=== PATIENT | female | born 1940 | race Caucasian/White ===

== ENCOUNTER 2022-04-30 10:09 | Outpatient (CLI) | payer MEDICARE, BC, SELFPAY | END 2022-04-30 10:10 | disposition home or self-care (01) | PROVIDERS: PCP Family Medicine; Visit Provider Family Medicine | DX: M54.16 Radiculopathy, lumbar region (principal); M51.36 Other intervertebral disc degeneration, lumbar region | CPT/HCPCS: 62323; J0702; Q9966 ==

== ENCOUNTER 2022-06-20 12:25 | Emergency (ER) | payer MEDICARE, BC, SELFPAY ==
[2022-06-20] VITALS (9 sets, daily range): BP systolic 131–173; BP diastolic 72–101; PULSE 83–100; TEMP 36.2; O2SAT 94–100; BMI 23.6
--- NOTE | 2022-06-20 13:09 | ED.BACK ---
HPI - Back Pain/Injury General Time Seen by Provider: 13:09 Date Seen: 06/20/22 Chief Complaint: Back Injury/Pain Stated Complaint: Right side pain Time Seen by Provider: 06/20/22 13:04 Source: patient and RN notes reviewed Mode of arrival: ambulatory Limitations: no limitations History of Present Illness HPI Narrative: Patient is a 81-year-old female with known spinal stenosis coming in with more upper right-sided posterior back pain now. Insidiously over the week she has had right-sided posterior chest wall pain. It radiates and wraps around to the front sometimes. It hurts with position changes, she feels like she can not get comfortable, hurts in the posterior chest wall area with deep breathing.. About 1-2 months ago she did have an injection for her lumbar spinal stenosis. She has been using some ice on her low back for that. Her leg will sometimes go out due to this but that is not new. This right posterior chest wall pain has gotten progressive over the week. She did try some heat and ice on it, that did not help. She is on Celebrex during the day and takes gabapentin at night for her back. Tylenol has not touched anything. Her current pain medicines are not helping. She does see Dr. Nguyen at [facility]. No fevers or chills, no cough or cold symptoms. She does not feel like there is any internal pain such as pain coming from her heart. We did review that we would just look at an EKG and troponin and she does feel comfortable with that. She feels like there is a swelling in her back. She denies any acute trauma. She does know that she has osteoporosis besides arthritis of her spine as well as the spinal stenosis. Related Data Home Medications Medication Instructions Recorded Confirmed celecoxib 200 mg capsule mg 06/20/22 gabapentin 300 mg capsule mg 06/20/22 lisinopril 40 mg tablet mg 06/20/22 meclizine 25 mg tablet mg 06/20/22 Previous Rx's Medication Instructions Recorded tizanidine 2 mg tablet 2 mg PO Q8H PRN muscle spasticity 06/20/22 #20 tabs Allergies Allergy/AdvReac Type Severity Reaction Status Date / Time No Known Drug Allergies Allergy Verified 06/20/22 12:34 Review of Systems Status of ROS: Reports: 10 or more systems reviewed and unremarkable except as noted in History and below PFSH PFSH Social History Smoking Status: Never smoker How often do you have a drink containing alcohol: never How often do you have six or more drinks on one occasion: Never AUDIT-C Alcohol total score: 0 Non-prescribed substance use: denies use Exam Const: Vital Signs, click to edit/add: Vital Signs - 24 hr 06/20/22 12:30 06/20/22 13:26 06/20/22 13:00 Temperature 97.2 F L Pulse Rate Pulse Rate [Left P ulse Oximeter] 100 89 Blood Pressure Blood Pressure [Ri ght Upper Arm] 173/101 H 138/73 Pulse Oximetry 98 98 96 Oxygen Delivery Me thod Room Air Room Air 06/20/22 13:30 06/20/22 14:30 06/20/22 15:00 Temperature Pulse Rate 91 Pulse Rate [Left P ulse Oximeter] 90 83 Blood Pressure Blood Pressure [Ri ght Upper Arm] 138/72 155/79 H Pulse Oximetry 98 100 100 Oxygen Delivery Me thod Room Air Room Air 06/20/22 15:02 06/20/22 15:03 06/20/22 16:17 Temperature Pulse Rate 89 97 Pulse Rate [Left P ulse Oximeter] Blood Pressure 131/79 Blood Pressure [Ri ght Upper Arm] Pulse Oximetry 98 100 94 Oxygen Delivery Me thod Documenting provider has reviewed patient's vital signs: yes Common normals: no apparent distress, average body habitus, oriented x3, no limitations, healthy appearing, alert and well nourished General appearance: cooperative, comfortable, well kempt and well developed Other: Does have discomfort with attempts at movement. When she is at rest, does appear comfortable however. HENMT: Common normals: normocephalic, head/scalp atraumatic and hearing grossly normal bilaterally Head and scalp: normocephalic and atraumatic Eye: Common normals: PERRL, EOMs intact bilaterally, conjunctivae normal and no scleral icterus Conjunctiva: conjunctiva(e) normal Pupil: PERRL Neck & C-Spine: Common normals: full ROM, no lymphadenopathy, supple, no meningeal signs, no JVD and thyroid normal Thyroid: thyroid normal Chest: Other: On her right lower chest wall juxtaposed to the spine in the paraspinous area, does seem to be some prominence of the soft tissue but no overlying skin changes. She has tenderness when I palpate along the lower right chest wall with the maximum intensity of pain closer to her midline back. There is no ecchymosis erythema or rash however. There is no crepitus or step-off. Resp: Common normals: normal respiratory effort, no retractions, no use of accessory muscles and clear to auscultation bilaterally Auscultation: clear to auscultation bilaterally Cardio: Common normals: no JVD, regular rate, regular rhythm, S1 normal heart sound, S2 normal heart sound, no gallops and no clicks Rate: regular rate Rhythm: regular rhythm Heart sounds: S1 normal and S2 normal GI: Common normals: Normal to inspection, nondistended, normoactive bowel sounds present, soft to palpation, non-tender, no hepatosplenomegaly and no masses Palpation: soft and no hepatosplenomegaly Back & Pelvis: Common normals: thoracic and lumbar spine normal to inspection, no thoracic nor lumbar tenderness and straight leg raise negative bilaterally Extremity: Other: No lower extremity edema, no calf tenderness. Neuro: Common normals: oriented x3 Sensorium/orientation: alert Meningeal signs: no meningeal signs Psych: Appearance: well kempt Course Course Hospital Course: Reviewed imaging options. They would like to proceed with CT imaging and I have ordered CT of her chest noncontrast as well as reconstruction of her thoracic spine. I do think osteoporotic fractures are potential etiology here. This seems to be isolated to her chest wall. Will get appropriate labs. As reviewed with her, will get an EKG and troponin just to ensure there is no concerning change and AA atypical presentation of coronary artery disease. She is in agreement with this. We did review that we would discussed pain management but will try to find the etiology 1st. She is comfortable enough at this time and does not need emergent intervention as far as pain. Reevaluation(s) Reevaluation #1: Brought copies of her CT reports in, no evidence of any acute fracture. There is no mass in the chest wall. Re-evaluation the chest wall reveals a little prominent area over the right medial lower rib cage, very tender, feels like this is probable palpable muscle spasm. She is just exquisitely tender in this area and there is nothing showing up on CT. Her labs are notably normal. We can try adding in a muscle relaxant for her. I would have her continue using ice. Time: 16:23 Vital Signs Vital signs: Initial Vital Signs Temperature 97.2 F L 06/20/22 12:30 Temperature Source Temporal Artery Scan 06/20/22 12:30 Pulse Rate 100 06/20/22 12:30 Blood Pressure 173/101 H 06/20/22 12:30 Blood Pressure Mean 125 06/20/22 12:30 Blood Pressure Position Sitting 06/20/22 12:30 Pulse Oximetry 98 06/20/22 12:30 Oxygen Delivery Method 06/20/22 12:30 Vital Signs Temperature 97.2 F L 06/20/22 12:30 Pulse Rate 100 06/20/22 12:30 Blood Pressure 173/101 H 06/20/22 12:30 Pulse Oximetry 98 06/20/22 12:30 Oxygen Delivery Method 06/20/22 12:30 Temperature 97.2 F L 06/20/22 12:30 Pulse Rate 97 06/20/22 16:17 Blood Pressure 131/79 06/20/22 15:02 Pulse Oximetry 94 06/20/22 16:17 Oxygen Delivery Method 06/20/22 14:30 MDM - Back Pain/Injury Lab Data Attestation: I reviewed the patient's lab results. Labs: Lab Results 06/20/22 06/20/22 06/20/22 Range/Units 13:27 13:58 13:58 WBC 8.07 (4.50-11.00) K/uL RBC 4.30 (4.00-5.20) m/uL Hgb 12.7 (12.0-16.0) gm/dL Hct 39.3 (33.0-51.0) % MCV 91 (80-100) fL MCH 30 (26-34) pg MCHC 32 (32-36) gm/dL RDW Coeff of Luisa 13.5 (11.5-15.5) % Plt Count 295 (140-440) K/uL Neut % (Auto) 62.8 (42.0-72.0) % Lymph % (Auto) 27.1 (20-44) % [place] % (Auto) 7.9 (0.0-11.0) % Eos % (Auto) 1.7 (0.0-7.0) % Baso % (Auto) 0.4 (0.0-3.0) % Neut # (Auto) 5.06 (1.7-7.0) K/uL Lymph # (Auto) 2.19 (0.90-2.90) K/uL [place] # (Auto) 0.60 (0.00-0.90) K/UL Eos # (Auto) 0.14 (0.00-0.50) K/uL Baso # (Auto) 0.03 (0.00-0.30) K/uL Sodium 141 (135-149) mmol/L Potassium 4.3 (3.6-5.1) mmol/L Chloride 110 (96-114) mmol/L Carbon Dioxide 23 (20-32) mmol/L BUN 25 (7-30) mg/dL Creatinine 1.0 (0.5-1.5) mg/dL Estimated Creat Clear 32.77 Estimated GFR 57 ml/min Glucose 88 (60-115) mg/dL Lactate (0.5-1.9) mmol/L Calcium 9.1 (8.4-10.6) mg/dL Total Bilirubin 0.5 (0.1-1.5) mg/dL AST 29 (12-35) U/L ALT 19 (4-35) U/L Alkaline Phosphatase 62 (40-150) U/L Total Protein 7.1 (6.0-8.3) g/dL Albumin 4.5 (3.3-5.0) g/dL POC Troponin I 0.01 (0.01-0.04) ng/ml 06/20/22 Range/Units 13:58 WBC (4.50-11.00) K/uL RBC (4.00-5.20) m/uL Hgb (12.0-16.0) gm/dL Hct (33.0-51.0) % MCV (80-100) fL MCH (26-34) pg MCHC (32-36) gm/dL RDW Coeff of Luisa (11.5-15.5) % Plt Count (140-440) K/uL Neut % (Auto) (42.0-72.0) % Lymph % (Auto) (20-44) % [place] % (Auto) (0.0-11.0) % Eos % (Auto) (0.0-7.0) % Baso % (Auto) (0.0-3.0) % Neut # (Auto) (1.7-7.0) K/uL Lymph # (Auto) (0.90-2.90) K/uL [place] # (Auto) (0.00-0.90) K/UL Eos # (Auto) (0.00-0.50) K/uL Baso # (Auto) (0.00-0.30) K/uL Sodium (135-149) mmol/L Potassium (3.6-5.1) mmol/L Chloride (96-114) mmol/L Carbon Dioxide (20-32) mmol/L BUN (7-30) mg/dL Creatinine (0.5-1.5) mg/dL Estimated Creat Clear Estimated GFR ml/min Glucose (60-115) mg/dL Lactate 1.0 (0.5-1.9) mmol/L Calcium (8.4-10.6) mg/dL Total Bilirubin (0.1-1.5) mg/dL AST (12-35) U/L ALT (4-35) U/L Alkaline Phosphatase (40-150) U/L Total Protein (6.0-8.3) g/dL Albumin (3.3-5.0) g/dL POC Troponin I (0.01-0.04) ng/ml Imaging Data CT- Other: Attestation: I have reviewed the pertinent imaging results. Radiologist's impression: Patient: YOSHI WEINSTEIN Facility:?[facility] Patient ID:?[id number] Site Patient ID:?[id number]. Site :?[id number] Study:?CT Spine Thoracic WO-06/20/2022 2:32:42 PM Ordering Physician:?Stacey Kelly Final Report: INDICATION: Back pain, radiates into chest.. TECHNIQUE: CT thoracic spine without contrast. COMPARISON: None. FINDINGS: Vertebrae: Alignment is normal. There are no fractures or suspicious bony lesions. Diffuse demineralization of the visualized bones. Discs and facet joints: Multilevel degenerative changes do mild degree throughout the thoracic spine. At the L1 vertebral body there is compression deformity and severe degenerative changes along the endplates. Extraspinal findings: Prevertebral soft tissues, visualized airway, and visualized lungs are unremarkable. IMPRESSION: No acute fractures or subluxation. Chronic appearing compression deformity of the L1 vertebral body with surrounding severe degenerative endplate changes. Please note that all CT scans at this facility use dose modulation, iterative reconstruction, and/or weight-based dosing when appropriate to reduce radiation dose to as low as reasonably achievable. Dictated by Nellie Rosario MD @ 06/20/2022 3:27:47 PM (Electronic Signature) CT scan - chest: Attestation: I have reviewed the pertinent imaging results. Radiologist's impression: Patient: YOSHI WEINSTEIN Facility:?[facility] Patient ID:?[id number] Site Patient ID:?[id number]. Site :?[id number] Study:?CT Chest WO-06/20/2022 2:32:12 PM Ordering Physician:Aneta Kelly Final Report: INDICATION: Right posterior chest wall pain.. TECHNIQUE: CT chest without contrast. COMPARISON: None. FINDINGS: Lungs and pleura: No suspicious nodules or infiltrates. No pleural effusions, pleural thickening, or pneumothorax. Probable small right-sided Bochdalek`s hernia containing fat. Minimal bibasilar atelectasis. Heart and vasculature: Heart size is borderline enlarged. Thoracic aorta and pulmonary artery are normal in caliber. Trace pericardial effusion, nonspecific. Lymph nodes/mediastinum: No mediastinal, hilar, or axillary adenopathy. Chest wall: No masses. Upper abdomen: No significant findings. Bones: Diffuse demineralization of visualized bones. Compression deformity in severe degenerative changes at the superior and inferior endplate of the L1 vertebral body. No acute fractures identified. IMPRESSION: No acute cardiopulmonary process identified. Probably chronic compression deformity of the L1 vertebral body with surrounding endplate degenerative changes. Please note that all CT scans at this facility use dose modulation, iterative reconstruction, and/or weight-based dosing when appropriate to reduce radiation dose to as low as reasonably achievable. Dictated by Nellie Rosario MD @ 06/20/2022 3:24:04 PM (Electronic Signature) ECG Data Attestation: I personally reviewed and interpreted this ECG as follows: (Sinus rhythm, 84 beats per minute. Flipped T-waves lateral precordial leads V3 through V6 without ST segment changes.) Prior ECG tracings: not available for review (No old EKG in our system) Critical Care Time Critical Care Time Critical Care Time: No Discharge Plan Discharge Clinical Impression: Spasm of thoracic back muscle Condition: Stable Instructions: Muscle Spasm (ED), Back Pain (ED) Additional Instructions: I would try using ice to this area of your back. If you cannot tolerate it then can try heat instead. We will try the muscle relaxant, use as prescribed. If you absolutely cannot sleep, can try increasing the gabapentin to 2 tablets at bedtime for 600 mg. If this is too sedating for you or you have too many side effects from it, go back down to the 300 mg at bedtime. Follow-up with your primary care provider within the next week for ongoing symptoms. If you develop fever, difficulty breathing, have no pain relief, seek re-evaluation. Activity Level: Activity as Tolerated Prescriptions: New tizanidine 2 mg tablet 2 mg PO Q8H PRN (Reason: muscle spasticity) Qty: 20 0RF No Action celecoxib 200 mg capsule meclizine 25 mg tablet gabapentin 300 mg capsule lisinopril 40 mg tablet Follow Up/Referrals: Ginny Tobias DO [Primary Care Provider] - Stand Alone Forms: [employer] [facility] Info Instructions
--- NOTE | 2022-06-20 13:26 | CRLHL7_ITS ---
For Patients: As a result of the Century Cures Act, medical imaging exams and procedure reports are released immediately into your electronic medical record. You may view this report before your referring provider. If you have questions, please contact your health care provider. INDICATION: Right posterior chest wall pain.. TECHNIQUE: CT chest without contrast. COMPARISON: None. FINDINGS: Lungs and pleura: No suspicious nodules or infiltrates. No pleural effusions, pleural thickening, or pneumothorax. Probable small right-sided Bochdalek`s hernia containing fat. Minimal bibasilar atelectasis. Heart and vasculature: Heart size is borderline enlarged. Thoracic aorta and pulmonary artery are normal in caliber. Trace pericardial effusion, nonspecific. Lymph nodes/mediastinum: No mediastinal, hilar, or axillary adenopathy. Chest wall: No masses. Upper abdomen: No significant findings. Bones: Diffuse demineralization of visualized bones. Compression deformity in severe degenerative changes at the superior and inferior endplate of the L1 vertebral body. No acute fractures identified. IMPRESSION: No acute cardiopulmonary process identified. Probably chronic compression deformity of the L1 vertebral body with surrounding endplate degenerative changes. Please note that all CT scans at this facility use dose modulation, iterative reconstruction, and/or weight-based dosing when appropriate to reduce radiation dose to as low as reasonably achievable. Dictated by Nellie Rosario MD @ 06/20/2022 3:24:04 PM (Electronically Signed)
--- NOTE | 2022-06-20 13:27 | CRLHL7_ITS ---
For Patients: As a result of the Century Cures Act, medical imaging exams and procedure reports are released immediately into your electronic medical record. You may view this report before your referring provider. If you have questions, please contact your health care provider. INDICATION: Back pain, radiates into chest.. TECHNIQUE: CT thoracic spine without contrast. COMPARISON: None. FINDINGS: Vertebrae: Alignment is normal. There are no fractures or suspicious bony lesions. Diffuse demineralization of the visualized bones. Discs and facet joints: Multilevel degenerative changes do mild degree throughout the thoracic spine. At the L1 vertebral body there is compression deformity and severe degenerative changes along the endplates. Extraspinal findings: Prevertebral soft tissues, visualized airway, and visualized lungs are unremarkable. IMPRESSION: No acute fractures or subluxation. Chronic appearing compression deformity of the L1 vertebral body with surrounding severe degenerative endplate changes. Please note that all CT scans at this facility use dose modulation, iterative reconstruction, and/or weight-based dosing when appropriate to reduce radiation dose to as low as reasonably achievable. Dictated by Nellie Rosario MD @ 06/20/2022 3:27:47 PM (Electronically Signed)
[2022-06-20 14:05] LABS: Basophils Absolute Auto 0.03 K/uL (0.00-0.30); Basophils Percent Auto 0.4 % (0.0-3.0); Eosinophils Absolute Auto 0.14 K/uL (0.00-0.50); Eosinophils Percent Auto 1.7 % (0.0-7.0); Hematocrit 39.3 % (33.0-51.0); Hemoglobin* 12.7 gm/dL (12.0-16.0); Immature Granulocytes Abs Auto 0.01 K/uL (0.00-0.30); Immature Granulocytes Pct Auto 0.1 %; Lymphocytes Absolute Auto 2.19 K/uL (0.90-2.90); Lymphocytes Percent Auto 27.1 % (20-44); Mean Corpuscular HGB Conc 32 gm/dL (32-36); Mean Corpuscular Hemoglobin 30 pg (26-34); Mean Corpuscular Volume 91 fL (80-100); Monocytes Percent Auto 7.9 % (0.0-11.0); Neutrophils Absolute Auto 5.06 K/uL (1.7-7.0); Neutrophils Percent Auto 62.8 % (42.0-72.0); Platelet Count* 295 K/uL (140-440); RDW Coefficient of Variation % 13.5 % (11.5-15.5); White Blood Count* 8.07 K/uL (4.50-11.00)
[2022-06-20 14:09] LABS: Slide Review Reflex No
[2022-06-20 14:20] LABS: Troponin, Point-of-Care* 0.01 ng/ml (0.01-0.04)
[2022-06-20 14:30] LABS: Albumin* 4.5 g/dL (3.3-5.0); Chloride* 110 mmol/L (96-114)
[2022-06-20 14:31] LABS: Potassium* 4.3 mmol/L (3.6-5.1); Sodium* 141 mmol/L (135-149)
[2022-06-20 14:33] LABS: Aspartate Amino Transferase* 29 U/L (12-35); Bilirubin Total* 0.5 mg/dL (0.1-1.5); Carbon Dioxide* 23 mmol/L (20-32); Est. Creatinine Clearance* 32.77; Estimated Glomerular Filt Rate 57 ml/min; Total Protein* 7.1 g/dL (6.0-8.3)
[2022-06-20 14:34] LABS: Alanine Aminotransferase* 19 U/L (4-35); Alkaline Phosphatase* 62 U/L (40-150); Blood Urea Nitrogen* 25 mg/dL (7-30); Calcium* 9.1 mg/dL (8.4-10.6); Glucose* 88 mg/dL (60-115)
== END 2022-06-20 16:42 | disposition home or self-care (01) ==
PROVIDERS: Emergency Provider Family Medicine; PCP Family Medicine
DX: M54.6 Pain in thoracic spine (principal); M62.830 Muscle spasm of back
CPT/HCPCS: 36415; 71250; 72128; 80053; 83605; 84484; 85025; 93005; 94761; 99284; 99285

== ENCOUNTER 2023-01-17 12:47 | Outpatient (RCR) | payer MEDICARE, BC, SELFPAY | END 2023-05-17 23:59 | disposition home or self-care (01) | PROVIDERS: PCP Family Medicine; Visit Provider Family Medicine | DX: H81.13 Benign paroxysmal vertigo, bilateral (principal); Z51.89 Encounter for other specified aftercare | CPT/HCPCS: 97140; 97162 ==

== ENCOUNTER 2023-03-11 08:35 | Outpatient (CLI) | payer MEDICARE, BC, SELFPAY | END 2023-03-11 08:36 | disposition home or self-care (01) | LOC: INJ CL 08:36 | PROVIDERS: PCP Family Medicine; Visit Provider Family Medicine | DX: M51.36 Other intervertebral disc degeneration, lumbar region (principal); M54.16 Radiculopathy, lumbar region | CPT/HCPCS: 62323; J0702; Q9966 ==

== ENCOUNTER 2023-06-11 13:45 | Outpatient (RCR) | payer MEDICARE, BC, SELFPAY | END 2023-07-11 09:08 | disposition home or self-care (01) | PROVIDERS: PCP Family Medicine; Visit Provider Family Medicine | DX: H81.13 Benign paroxysmal vertigo, bilateral (principal); M54.2 Cervicalgia; M25.60 Stiffness of unspecified joint, not elsewhere classified; Z51.89 Encounter for other specified aftercare | CPT/HCPCS: 97110; 97140; 97161; 97535 ==

== ENCOUNTER 2023-07-15 09:08 | Outpatient (CLI) | payer MEDICARE, BC, SELFPAY ==
--- OUTSIDE RECORDS SUMMARY | 2023-07-15 09:11 | XMS_ITS | Clinical Summary ---
Author Name Unknown Organization [facility] Address [place], [place] [address] Care Team Providers Care Toy Consultant Name Role Phone Ginny Tobias DO Primary Care Provider [phone] Meena Sterling MD Unavailable [phone] Allergies Active Allergy Reactions Criticality Noted Date Comments Hydrochlorothiazide Other - Describe In Comment Field 05/19/2013 elevated creatinine-was on lisinopril with this, but no elevation on lisinopril alone. 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 180 Capsule 4 09/16/2022 Active gabapentin (NEURONTIN) 300 mg capsuleIndications:Lum bar radiculopathy,Chronic midline low back pain with right-sided sciatica Take 1 Capsule (300 mg) by mouth at bedtime. 90 Capsule 4 09/16/2022 Active meclizine (ANTIVERT) 25 mg tabletIndications:BPV (benign positional vertigo), unspecified laterality Take 1/2 to 1 tablet by mouth every 8 hours as needed. 10 Tablet 3 09/16/2022 Active Active Problems Problem Noted Date Diagnosed Date BPV (benign positional vertigo), unspecified lat erality 09/14/2021 Essential hypertension 09/14/2021 White coat syndrome with diagnosis of hypertensi on 12/02/2019 Hemangioma of other sites 06/16/2017 Osteopenia 03/11/2012 Resolved Problems Problem Noted Date Diagnosed Date Resolved Date HTN (hypertension) 03/11/2012 2 Encounters Date Type Department Care Team Description 07/15/2023 Travel 06/16/2023 10:00 AM [employer]ODU[employer] TE[employer]ER Ancillary Procedure [facility] [address] [facility] [id number] 06/16/2023 Travel 06/13/2023 Telephone [facility] [address] [facility] [address] Chandler Nguyen MD INJECTION (BACK INJECTION) 05/13/2023 Telephone [facility] [address] [facility] [address] Ginny Tobias, Physical Therapy from Last 3 Months Immunizations Name Administration Dates Next Due COVID-19 vaccine (Hyasynth Bio-Bio NTech 30mcg/0.3mL) 12YO+ AB-SUCROSE PF, MDV 01/23/2022 COVID-19 vaccine (Pfizer-Bio NTech 30mcg/0.3mL) PF, MDV 08/29/2020 Influenza, High-dose Inactivated 05/13/2016,03/31,04/15/2014 Influenza, High-dose Quadriv alent Inactivated 04/12/2021 Influenza, Inactivated AIIV4 (Age 65+ Years) Preserv Free 06/10/2022,04/24/2020 Influenza, Inactivated IIV3 (Age 65+ Years) Preserv Free 03/24/2019,05/04/2018,05/02/2017 Pneumococcal Poly,23-Valent (Pneumovax) 04/09/20 13 Pneumococcal conj 13-Valent (Prevnar 13) 015 Tdap 03/11/2012 Family History Medical History Relation Name Comments Hyperlipidemia Brother Heart Disease Father alheimers and defibulator Cancer-breast Maternal Aunt Cancer-ovarian No Family History Relation Name Status Comments Brother Father Maternal Aunt Social History Tobacco Use Types Packs/Day Years Used Date Smoking Tobacco: Never Smokeless Tobacco: Never Tobacco Cessation:Counseling Given: Yes Alcohol Use Standard Drinks/Week Comments No 0 (1 standard drink = 0.6 oz pur e alcohol) Rare PHQ-2 Answer Date Recorded PHQ-2 TOTAL SCORE 0 09/16/2022 Social Connections Answer Date Recorded Frequency of Communication with Friends and Fami ly Not on file 01/14/2023 Financial Resource Strain Answer Date R ecorded Difficulty of Paying Living Expenses 3 01/10/2022 Difficulty of Paying Living Expenses Not on file 01/10/2022 Food Insecurity Answer Date Recorded Worried About Running Out of Food in the Last Ye ar 1 01/10/2022 Transportation Needs Answer Date Record ed Lack of Transportation (Medical) 1 01/10/2022 Housing Stability Answer Date Recorded Unable to Pay for Housing in the Last Year 1 01/10/2022 Sex and Gender Information Value Date Recorded Sex Assigned at Not on file Gender Identity Not on file Sexual Orientation Not on file Obstetrics History Para Term AB IAB SAB Ectopic Multiple Livin g Live Births 2 2 0 Date Outcome GA Total Labor Labor/2nd/3rd Weight Sex Delivery Anes PTL Olga Lidia A1 A5 Name Cl in Para Para Last Filed Vital Signs Vital Sign Reading Time Taken Comments Blood Pressure 145/78 01/10/2023 1:57 PM CDT Pulse 92 01/10/2023 1:57 PM CDT Temperature 36.5 ??C (97.7 ??F) 03/21/2022 9:12 AM CD T Respiratory Rate - - Oxygen Saturation 98% 01/10/2023 1:57 PM CDT Inhaled Oxygen Concentration - - Weight 55.3 kg (122 lb) 01/10/2023 1:57 PM CDT Height 154.9 cm (5' 1) 01/10/2023 1:57 PM CDT Body Mass Index 23.05 01/10/2023 1:57 PM CDT Plan of Treatment Upcoming Encounters Date Type Department Care Team (Late st Contact Info) Description 07/15/2023 9:40 AM [employer] TE[employer]ER Office Visit [facility] [address] [place] [id number] Chandler Nguyen MD [address] [place] [address] Arrived Health Maintenance Due Date Last Done Comments Zoster (shingles) series for age 50+ (1 of 2) 1992 Tetanus booster 03/11/2022 03/11/2012 COVID-19 vaccine series ( season) 2023 01/23/2022, 05/31/2021, 09/19/2020, Additional history exists Influenza for age 65+ 02/28/2023 06/10/2022 , 04/12/2021, 04/24/2020, Additional history exists Medicare Wellness for age 65+ 09/16/2023, 09/14/2021, 09/13/2020, Additional history exists Depression screening for age 12+ 09/17/2023 09/16/2022, 09/16/2022, 09/17/2021, Additional history exists BMI (ht and wt on same day) for age 18+ 01/11/2024 01/10/2023, 09/16/2022, 01/23/2022, Additional history exists Tdap Completed 03/11/2012 Pneumococcal series for age 65+ Completed 5, 04/09/2013 DEXA/DXA scan for age 65+ Completed 2020, 04/25/2015, 04/09/2013, Additional history exists Procedures Procedure Name Priority Date/Time Associated Diagnosis Comments AMB EPIDURAL STEROID INJECTION Routine 07/15/2023 8:00 AM [employer] Lumbar radiculopathy Spinal stenosis of lumbar region with neurogenic claudication XR MAMMO ARLNEE BILAT SCREEN Routine 06/16/2023 10:04 AM [employer] TE[employer] Visit for screening mammogram from Last 3 Months Results * XR MAMMO ARLENE BILAT SCREEN (06/16/2023 10:04 AM [employer] TE[employer]ER) Anatomical Region Laterality Modality BREASTS, Breast Left, Breast Right Bilateral Mammography Impressions 06/16/2023 1:40 PM [employer]EST [employer]ODU[employer] TE[employer]ER ??There is no radiographic evidence for malignancy. ??Recommend annual mammograms. MAMMOGRAM ASSESSMENT: ??ACR 2 Benign PATIENTS: You will also receive a letter with your examination results in an easy to read format. ??If you have questions about your results, please contact your referring provider. Narrative 06/16/2023 1:40 PM [employer]EST [employer]ODU[employer] TEACHER For Patients: As a result of the Century Cures Act, medical imaging exams and procedure reports are released immediately into your electronic medical record. You may view this report before your referring provider. If you have questions, please contact your health care provider. XR MAMMO ARLENE BILAT SCREEN [[id number]] CLINICAL HISTORY: ??This is an asymptomatic 82 y.o. patient. INDICATION FOR EXAM: Mammogram Screening. TECHNIQUE: CC & MLO views were obtained. ??This study was evaluated with the assistance of Computer-Aided Detection. Breast Tomosynthesis was used in interpretation. COMPARISON FILMS: Yes 06/04/22 [facility] 05/21/21 [facility] FINDINGS: ??The breasts have scattered areas of fibroglandular density. ??No suspicious masses or microcalcifications. ??There are benign appearing mass(es). Ginny Tobias DO MAMMO from Last 3 Months Care Teams Toy Consultant Relationship Specialty Start Date End Date Ginny Tobias DO PCP - General 05/04/10 Meena Sterling MD Family Practice 02/27/11
== END 2023-07-15 09:09 | disposition home or self-care (01) ==
LOC: INJ CL 09:09
PROVIDERS: PCP Family Medicine; Visit Provider Family Medicine
DX: M54.16 Radiculopathy, lumbar region (principal); M51.36 Other intervertebral disc degeneration, lumbar region
CPT/HCPCS: 62323; J0702; Q9966

== ENCOUNTER 2024-06-29 13:03 | Outpatient (CLI) | payer MEDICARE, BC, SELFPAY | END 2024-06-29 13:04 | disposition home or self-care (01) | LOC: INJ CL 13:03 | PROVIDERS: PCP Family Medicine; Visit Provider Family Medicine | DX: M54.16 Radiculopathy, lumbar region (principal); M48.062 Spinal stenosis, lumbar region with neurogenic claudication | CPT/HCPCS: 62323; J0702; Q9966 ==

== ENCOUNTER 2024-12-07 13:10 | Outpatient (CLI) | payer MEDICARE, BC, SELFPAY | END 2024-12-07 13:11 | disposition home or self-care (01) | LOC: INJ CL 13:11 | PROVIDERS: PCP Family Medicine; Visit Provider Family Medicine | DX: M54.16 Radiculopathy, lumbar region (principal); M51.369 Other intervertebral disc degeneration, lumbar region without mention of lumbar back pain or lower extremity pain | CPT/HCPCS: 62323; J0702; Q9966 ==